=== PATIENT | female | born 1940 | race Caucasian/White ===

== ENCOUNTER 2024-12-16 11:45 | Day surgery (SDC) | payer MEDICARE, SELFPAY ==
[2024-12-12 17:09] VITALS: BMI 29.2
[2024-12-16 12:27] VITALS: BP 185/75; PULSE 93; RESP 17; TEMP 36.2; O2SAT 96
--- NOTE | 2024-12-16 12:36 | P.PNANES_ITS ---
[facility] Disclaimer: The information contained in this section may have been updated after the patient was seen, as this information can be updated by other users. Medical History History of breast cancer Hyperlipidemia GERD (gastroesophageal reflux disease) Hypertension Chronic back pain Anxiety Fatigue Sleep apnea Surgical History History of lumpectomy of right breast Hx of cholecystectomy Hx of tonsillectomy History of cataract surgery Family History Other No significant family history Social History Smoking Status: Former smoker alcohol intake: never substance use type: denies use current occupational status: retired Travel in the last 8 weeks?: None Have you lived/traveled outside [place] in past 30 days?: No Contact w/someone who lives/traveled outside [place] past 30 days?: No Exposure to someone with infectious disease in past 14 days?: No Do you have a fever (greater than 100.4 F or 38 C)?: No Have you tested positive for COVID-19?: No Exposed to someone with COVID-19 in past 14 days?: No Do you have a sore throat?: No Do you have a cough?: No Do you have any weakness?: No Do you have any diarrhea?: No Are you experiencing any unusual bleeding?: No Do you have any muscle aches/pain?: No Do you have any abdominal pain?: No Are you experiencing loss of taste or smell?: No [facility] Anesthesia Checklist Patient Identification Patient Identification: Arm Band and Verbal (Name & ) Structural Data Admitted From: Home Planned Operative Procedure/s: EGD Consent for Planned Operative Procedure(s) Verified: Yes Verified Documents: Surgical Consent NPO Status Verified Time NPO: 00:00 Chart Verification Results Verified: None Additional verifications Anesthesia Reactions: No Airway Assessment Mallampati Score:: Class II C-Spine Mobility Assessed: Yes TMJ Mobility Assessed: Yes Dentition: Good Dentition Neurological Assessment Level of Consciousness: Awake, Alert and Appropriate Hx Seizures: No Numbness or tingling in extremities: No Anesthesia Plan Anesthesia Risk discussed: Yes Anesthesia Plan: Verified Anesthesia Type: MAC
--- NOTE | 2024-12-16 13:00 | EXP.HP ---
History of Present Illness *Admission Date: 12/16/24 *History of present illness: Mrs. Nguyen is an 84-year-old female who is a new patient and was referred for tightness in burning in the retrosternal region as well as indigestion, hiatal hernia and GERD. The patient has had 2 prior EGDs with me and the last was in 2018 (this report is not presently available) but she does state that she had a larger hiatal hernia. The patient has had longstanding indigestion and does report chest pressure. When she was having nausea and chest pressure she had seen her chiropractor that immediately sent her to [facility] fairly recently and she was admitted overnight to rule out a cardiac etiology. Her cardiac troponins and EKGs were normal and this was deemed noncardiac chest pain and probable esophageal etiology. The patient reports pyrosis but almost no reflux. She is on omeprazole 40 mg daily in the morning as well as famotidine twice daily. She is also on sucralfate. She does have moderate gassiness. She often feels that she needs to belch but cannot. She reports little bloating. She is also on buspirone which she has been on for many years. She does have obstipation/incomplete defecation and has some constipation but other times where she has small bowel movements. She feels like there is a blockage at the anus. Her last colonoscopy was in 2011. The patient is on MiraLAX only as needed but not regularly scheduled. [facility] Disclaimer: The information contained in this section may have been updated after the patient was seen, as this information can be updated by other users. Medical History History of breast cancer Hyperlipidemia GERD (gastroesophageal reflux disease) Hypertension Chronic back pain Anxiety Fatigue Sleep apnea Surgical History History of lumpectomy of right breast Hx of cholecystectomy Hx of tonsillectomy History of cataract surgery Family History Other No significant family history Social History Smoking Status: Former smoker alcohol intake: never substance use type: denies use current occupational status: retired Travel in the last 8 weeks?: None Have you lived/traveled outside [place] in past 30 days?: No Contact w/someone who lives/traveled outside [place] past 30 days?: No Exposure to someone with infectious disease in past 14 days?: No Do you have a fever (greater than 100.4 F or 38 C)?: No Have you tested positive for COVID-19?: No Exposed to someone with COVID-19 in past 14 days?: No Do you have a sore throat?: No Do you have a cough?: No Do you have any weakness?: No Do you have any diarrhea?: No Are you experiencing any unusual bleeding?: No Do you have any muscle aches/pain?: No Do you have any abdominal pain?: No Are you experiencing loss of taste or smell?: No Other Medical History Have you received the Pneumonia Vaccine: Yes Review of Systems Review of Systems Review of systems (narrative): Negative *Cardiovascular Comments: Negative *Gastrointestinal Comments: Negative *Genitourinary Comments: Negative *Musculoskeletal Comments: Negative *Neurologic Comments: Negative Meds Home Medications and Allergies Home Medications ?Medication ?Instructions ?Recorded ?Confirmed ?Type amlodipine 10 mg tablet 10 mg PO DAILY 10/29/24 12/16/24 History apremilast 30 mg tablet (Otezla) 30 mg PO BID 10/29/24 12/16/24 History aspirin 81 mg tablet,delayed 81 mg PO WEEKLY 10/29/24 12/16/24 History release (Adult Low Dose Aspirin) atenolol 100 mg tablet 100 mg PO DAILY 10/29/24 12/16/24 History buspirone 10 mg tablet 10 mg PO BID 10/29/24 12/16/24 History calcium carb, citrate, malate 250 mg PO DAILY 10/29/24 12/16/24 History cholecalciferol (vitamin D3) 25 25 mcg PO DAILY 10/29/24 12/16/24 History mcg (1,000 unit) capsule clonidine HCl 0.1 mg tablet 0.1 mg PO HS 10/29/24 12/16/24 History famotidine 20 mg tablet 20 mg PO BID 10/29/24 12/16/24 History losartan 100 1 tab PO DAILY 10/29/24 12/16/24 History mg-hydrochlorothiazide 12.5 mg tablet magnesium 250 mg tablet 250 mg PO DAILY 10/29/24 12/16/24 History montelukast 10 mg tablet 10 mg PO DAILY 10/29/24 12/16/24 History omega-3 fatty acids 500 mg capsule 500 mg PO DAILY 10/29/24 12/16/24 History omeprazole 40 mg capsule,delayed 40 mg PO DAILY 10/29/24 12/16/24 History release polyethylene glycol 3350 17 17 g PO DAILY 10/29/24 12/16/24 History gram/dose oral powder (Miralax) spironolactone 25 mg tablet 25 mg PO DAILY 10/29/24 12/16/24 History sucralfate 1 gram tablet 1 g PO 4XD PRN . 10/29/24 12/16/24 History New Prescriptions to Start Prescriptions: Allergies Allergy/AdvReac Type Severity Reaction Status Date / Time No Known Allergies Allergy Verified 12/16/24 12:17 Exam Data for Last 24 hours Vital signs and Labs for Last 24 Hours: Temp Pulse Resp BP Pulse Ox O2 Del Method 97.1 F L 93 H 17 185/75 H 96 Room Air 12/16/24 12:27 12/16/24 12:27 12/16/24 12:27 12/16/24 12:27 12/16/24 12:27 12/16/24 12:27 *Routine HEENT Exam Head: Present normocephalic Eye: Present EOMI and PERRL ENT: Present mucous membranes moist *Routine Neck Exam Neck: Present supple *Routine Respiratory Exam Respiratory: Present CTA bilaterally *Routine Cardiovascular Exam Cardiovascular: Present RRR *Routine Abdominal Exam Abdominal: Present soft and normoactive bowel sounds; Absent tenderness *Routine Rectal Exam Rectal:: deferred *Routine Genitalia Exam Genitalia:: deferred *Routine Extremities Exam Extremities: Absent cyanosis, clubbing or edema *Routine Skin Exam Skin: Present warm; Absent rash *Routine Neurological Exam Neurological: Present alert and oriented X3 Assessment and Plan *Assessment and plan (1) Pyrosis: Status: Acute Category: Medical Code(s): R12 - Heartburn (2) Non-cardiac chest pain: Status: Acute Category: Medical Code(s): R07.89 - Other chest pain (3) Hiatal hernia: Status: Acute Category: Medical Code(s): K44.9 - Diaphragmatic hernia without obstruction or gangrene Plan A/P: 1. Chest pressure and pain with known hiatal hernia?noncardiac chest pain is the preprocedural diagnosis. The patient will be anesthetized/sedated using MAC sedation. The patient has been seen and examined. Cardiac and lung assessment prior to the examination is stable. Proceed with planned diagnostic EGD.
--- NOTE | 2024-12-16 13:01 | P.PCN_ITS ---
[facility] Procedure Note Date: 12/16/24 Time: 13:35 Procedure Note:: Upper Endoscopy Procedure Report: Esophagogastroduodenoscopy with cold biopsies Endoscopost: Aashish Vega II, MD Referring Physician: Zuleyma Grimaldo MD Date of Procedure: December 16, 2024 Equipment: Olympus GIF 190 standard upper endoscope Sedation: MAC sedation Indications: Mrs. Nguyen is an 84-year-old female who is here for diagnostic upper endoscopy. She was referred for tightness in burning in the retrosternal region as well as indigestion, hiatal hernia and GERD. The patient has had 2 prior EGDs with me and the last was in 2018 (this report is not presently available) but she does state that she had a larger hiatal hernia. The patient has had longstanding indigestion and does report chest pressure. When she was having nausea and chest pressure she had seen her chiropractor that immediately sent her to [facility] fairly recently and she was admitted overnight to rule out a cardiac etiology. Her cardiac troponins and EKGs were normal and this was deemed noncardiac chest pain and probable esophageal etiology. The patient reports pyrosis but almost no reflux. She is on omeprazole 40 mg daily in the morning as well as famotidine twice daily. She is also on sucralfate. She does have moderate gassiness. She often feels that she needs to belch but cannot. She reports little bloating. She is also on buspirone which she has been on for many years. She does have obstipation/incomplete defecation and has some constipation but other times where she has small bowel movements. She feels like there is a blockage at the anus. Her last colonoscopy was in 2011. The patient is on MiraLAX only as needed but not regularly scheduled. Procedure: Prior to the procedure, a history and physical exam was performed, and patient's medications and allergies were reviewed. The risks, benefits and alternatives of the sedation and procedure were discussed with the patient. All questions were answered and informed consent was obtained. The patient was brought to the procedure room. Patient identification and proposed procedure were verified by the physician and the nurse. The patient was placed in a left lateral decubitus position and the scope was passed under direct vision. Throughout the procedure, the patient's blood pressure, pulse, and oxygen saturations were monitored continuously. The upper GI endoscopy was accomplished without difficulty. The patient tolerated the procedure well. Findings: The scope was passed directly into the upper esophagus and advanced to the fourth portion of duodenum and proximal jejunum. A cold biopsy was taken from the proximal jejunum for the disaccharidase assay. The proximal jejunum, post bulbar duodenum, ampulla and duodenal bulb were normal with normal mucosa and conniventes. The scope was withdrawn through a normal duodenal bulb and pylorus into the stomach. There was some bile reflux with moderate linear reactive gastropathy of the antrum and body of the stomach. Cold biopsies were obtained. The fundus of the stomach was normal. Upon retroflexion there was a very small sliding 1 to 2 cm hiatal hernia. The scope was then withdrawn into the esophagus. There was no evidence of reflux esophagitis. There was a serrated Z-line and biopsies were taken at the GE junction. There were strong tertiary contractions and evidence of moderate esophageal dysmotility. The remainder of the esophageal mucosa was normal. Impression: 1. Nonerosive GERD with moderate esophageal dysmotility and very small sliding 1 to 2 cm hiatal hernia 2. Bile reflux with moderate linear reactive gastropathy Plan: I will follow-up the biopsies and disaccharidase assay and discuss the findings with the patient and family. I do feel that this is esophageal chest pressure and pain related to bile reflux and esophageal spasm/esophageal dyskinesia.
[2024-12-16 13:38] VITALS: BP 134/78; PULSE 90; RESP 18; TEMP 36.7; O2SAT 98
[2024-12-16 13:48] VITALS: BP 168/84; PULSE 70; RESP 16; O2SAT 98
[2024-12-16 13:58] VITALS: BP 147/61; PULSE 78; RESP 18; O2SAT 98
[2024-12-16 14:08] VITALS: BP 160/78; PULSE 76; RESP 16; TEMP 36.7; O2SAT 98
[2024-12-19 16:12] LABS: Interpretation Notes (.); Lactase 66.92 (>/= 14.0); Maltase 197.34 (>/= 110.0); Palatinase 9.5 (>/= 8.5); Reference Notes (.); Sucrase 38.82 (>/= 25.0)
== END 2024-12-16 14:08 | disposition home or self-care (01) ==
PROVIDERS: PCP Family Medicine; Visit Provider Internal Medicine Gastroenterology
PROC: 0DJ08ZZ Inspection of Upper Intestinal Tract, Via Natural or Artificial Opening Endoscopic (ICD-10-PCS; CPT 43239; principal; 2024-12-16 13:30)
DX: K21.00 Gastro-esophageal reflux disease with esophagitis, without bleeding (principal); K44.9 Diaphragmatic hernia without obstruction or gangrene; K29.50 Unspecified chronic gastritis without bleeding; Z85.3 Personal history of malignant neoplasm of breast; K31.89 Other diseases of stomach and duodenum; K59.00 Constipation, unspecified; I10 Essential (primary) hypertension; G89.29 Other chronic pain; M54.9 Dorsalgia, unspecified; F41.9 Anxiety disorder, unspecified; R53.83 Other fatigue; G47.30 Sleep apnea, unspecified; Z87.891 Personal history of nicotine dependence; Z79.899 Other long term (current) drug therapy; Z79.82 Long term (current) use of aspirin
CPT/HCPCS: 43239; 82657; 88305; J2003; J2704